=== PATIENT | male | born 1950 | race Caucasian/White ===

== ENCOUNTER 2025-02-20 06:33 | Day surgery (SDC) | payer MEDICARE, SELFPAY | END 2025-02-20 13:43 | disposition home or self-care (01) | LOC: GI 06:33 | PROVIDERS: ATTENDING PHYSICIAN Student in an Organized Health Care Education/Training Program | DX: Z12.11 Encounter for screening for malignant neoplasm of colon (principal); K64.0 First degree hemorrhoids; K57.30 Diverticulosis of large intestine without perforation or abscess without bleeding | CPT/HCPCS: G0121 ==